=== PATIENT | male | born 1980 | race Caucasian/White ===

== ENCOUNTER 2017-06-02 14:02 | Emergency (ER) | payer OTHER ==
[2017-06-02 14:02] VITALS: BMI 27.4
[2017-06-02] MEDS ORDERED: Naproxen 550 mg Tab PO STA (14:49)
[2017-06-02] MEDS ORDERED: Naproxen 550 mg Tab PO ONE (15:26)
[2017-06-02 15:44] LABS: RBC URINE 3 /hpf (0-3); URINE BILIRUBIN NEGATIVE (NEGATIVE); URINE BLOOD NEGATIVE (NEGATIVE); URINE COLOR Yellow (YELLOW); URINE GLUCOSE (UA) NORMAL (Normal); URINE KETONE NEGATIVE (NEGATIVE); URINE LEUKOCYTE ESTERASE NEG Leu/uL (Negative); URINE PROTEIN NEGATIVE (NEGATIVE); URINE UROBILINOGEN NORMAL mg/dL (0.2-1.0); WBC URINE < 1 /hpf (0-5)
--- NOTE | 2017-06-02 15:58 | C.PDOC ---
History Of Present Illness 36 y/o male c/o intermittent headache, body aches, sore throat, chills for the past 2 weeks. He denies chest pain, SOB, abdominal pain, nausea/vomiting/ diarrhea, dysuria/hematuria. Patient also reports increased urinary frequency. Time Seen by Provider: 06/02/17 14:28 Chief Complaint (Nursing): Flu-like Symptoms History Per: Patient History/Exam Limitations: no limitations Onset/Duration Of Symptoms: Days Current Symptoms Are (Timing): Still Present Location Of Pain: Throat, Diffuse Myalgias, Headache Associated Symptoms: Chills, Sore Throat, Myalgias. denies: Cough Severity: Mild Past Medical History Reviewed: Historical Data, Nursing Documentation, Vital Signs Vital Signs: Last Vital Signs Temp 97.8 F 06/02/17 16:00 Pulse 67 06/02/17 16:00 Resp 16 06/02/17 16:00 BP 151/93 H 06/02/17 16:00 Pulse Ox 98 06/02/17 17:57 - Medical History PMH: No Chronic Diseases - [facility] TETANUS TOXOID ADMINIST (04/22/13) Family History: States: No Known Family Hx - Social History Hx Tobacco Use: No Hx Alcohol Use: Yes Hx Substance Use: No - Immunization History Hx Tetanus Toxoid Vaccination: No Hx Influenza Vaccination: No Hx Pneumococcal Vaccination: No Review Of Systems Except As Marked, All Systems Reviewed And Found Negative. Constitutional: Positive for: Chills, Malaise. Negative for: Fever ENT: Positive for: Throat Pain. Negative for: Ear Pain Cardiovascular: Negative for: Chest Pain, Palpitations Respiratory: Negative for: Cough, Shortness of Breath, Wheezing Gastrointestinal: Negative for: Nausea, Vomiting Skin: Negative for: Rash Neurological: Positive for: Headache. Negative for: Dizziness Physical Exam - Physical Exam Appears: Well, Non-toxic, No Acute Distress Skin: Normal Color, Warm, Dry, No Rash Head: Normacephalic Nose: Normal Oral Mucosa: Moist Throat: Normal, No Erythema, No Exudate, No Drooling Neck: Supple Cardiovascular: Rhythm Regular Respiratory: Normal Breath Sounds, No Rales, No Rhonchi, No Wheezing Back: Normal Inspection Neurological/Psych: Oriented x3 ED Course And Treatment O2 Sat by Pulse Oximetry: 98 (RA) Pulse Ox Interpretation: Normal Progress Note: UA and accucheck ordered and reviewed. Patient given PO Naprosyn , and reassurred that symptoms are likely virall. UA (-) for UTI, and accucheck WNL. Patient given Rx for Naprosyn and was instructed to follow up with PMD/clinic in 1-2 days. He understands he should return to ED if symptoms worsen. Reevaluation Time: 16:00 Reassessment Condition: Improved Disposition Counseled Patient/Family Regarding: Studies Performed, Diagnosis, Need For Followup, Rx Given - Disposition Referrals: Clinic,Med Surg [Primary Care Provider] - Disposition: HOME/ ROUTINE Disposition Time: 16:00 Condition: STABLE Additional Instructions: SIGUE A TU DOCTOR / CLNICA EN 1-2 LONG BEBER MUCHO LQU[employer]O USE [facility] SEGN SEA NECESARIO REGRESE AL [facility] DE [facility] SI [facility] SNT[facility] Prescriptions: Naproxen 375 mg PO BID PRN #20 tablet PRN Reason: pain Instructions: Viral Syndrome (ED) Forms: [facility] (Luxembourgish), Work Excuse Print Language: TAMAZIGHT - POA Present On Arrival: None - Clinical Impression Clinical Impression: Viral syndrome - Scribe Statement The provider has reviewed the documentation as recorded by the Scribe SM All medical record entries made by the Scribe were at my direction and personally dictated by me. I have reviewed the chart and agree that the record accurately reflects my personal performance of the history, physical exam, medical decision making, and the department course for this patient. I have also personally directed, reviewed, and agree with the discharge instructions and disposition.
[2017-06-02 16:01] VITALS: BP 151/93; PULSE 67; RESP 16; TEMP 97.8
[2017-06-02 16:02] VITALS: O2SAT 98
== END 2017-06-02 16:01 | disposition home or self-care (01) ==
LOC: SUPCPDRO 14:02 → C.ER 14:02
DX: B34.9 Viral infection, unspecified (principal)